=== PATIENT | male | born 1945 | race Caucasian/White ===

== ENCOUNTER → 2017-01-19 | Outpatient (CLI) | payer MEDICARE, BC | LOC: MW.CHFP 09:09 | PROVIDERS: ATTEND Emergency Medicine | DX: I10 Essential (primary) hypertension (principal); Z53.9 Procedure and treatment not carried out, unspecified reason ==

== ENCOUNTER → 2017-01-20 | Outpatient (CLI) | payer MEDICARE, BC ==
[2017-01-20 09:55] LABS: CHLORIDE,CL 106 mmol/L (98-110); SODIUM,NA 139 mmol/L (136-146)
== END | disposition home or self-care (01) ==
LOC: MW.CHFP 09:07
PROVIDERS: ATTEND Emergency Medicine
DX: I10 Essential (primary) hypertension (principal)
CPT/HCPCS: 36415; 80048; 80061

== ENCOUNTER → 2017-01-20 | Outpatient (CLI) | payer MEDICARE, BC | END | disposition home or self-care (01) | LOC: MW.CHUR 09:08 | PROVIDERS: ATTEND Urology | DX: N40.0 Benign prostatic hyperplasia without lower urinary tract symptoms (principal); R97.20 Elevated prostate specific antigen [PSA]; R31.0 Gross hematuria; I10 Essential (primary) hypertension; Z23 Encounter for immunization | CPT/HCPCS: 36415; 80048; 80061; 81001; 84153; 90732; 99214; G0009 ==

== ENCOUNTER → 2017-01-27 | Outpatient (CLI) | payer MEDICARE, BC | LOC: MW.CHUR 14:29 | PROVIDERS: ATTEND Urology | DX: R31.0 Gross hematuria (principal) | CPT/HCPCS: 51798; 76770; 81001 ==

== ENCOUNTER 2018-03-10 09:46 | Day surgery (SDC) | payer MEDICARE, BC ==
[~2018-03-10 09:46] MED LIST: Lactated Ringers 1,000 ML IV SCH; Lidocaine 2% 5 ML SDV ONE; Propofol 200 MG/20 ML SDV ONE; Sodium Chloride 0.9% 10 ML Syringe FLUSH PRN; Sodium Chloride 0.9% 2.5 ML Syringe FLUSH PRN; fentaNYL 100 MCG/2 ML SDV ONE
--- NOTE | 2018-03-10 10:34 | PCM.PREANE ---
Preanesthetic Assessment - Anesthesia/Transfusion/Family Hx Anesthesia History: Prior Anesthesia Without Reaction Family History of Anesthesia Reaction: No Transfusion History: No Prior Transfusion(s) - Review of Systems General: No Symptoms Pulmonary: No Symptoms Cardiovascular: No Symptoms Gastrointestinal: No Symptoms Neurological: No Symptoms Other: Reports: None - Physical Assessment NPO Status Date: 03/09/18 NPO Status Time: 21:00 O2 Sat by Pulse Oximetry: 97 Respiratory Rate: 18 Vital Signs: Last Vital Signs Temp 36.4 C 03/10/18 10:00 Pulse 87 03/10/18 10:00 Resp 18 03/10/18 10:00 BP 140/88 03/10/18 10:00 Pulse Ox 97 03/10/18 10:00 Height: 1.63 m Weight: 74.389 kg ASA Class: 2 - Allergies Allergies/Adverse Reactions: Allergies Allergy/AdvReac Type Severity Reaction Status Date / Time omeprazole [From Prilosec] Allergy kidneys Verified 03/07/18 08:09 shut down sulfamethoxazole Allergy Rash Verified 03/07/18 08:02 [From Bactrim] trimethoprim [From Bactrim] Allergy Rash Verified 03/07/18 08:02 - Anesthesia Plan Pre-Op Medication Ordered: None - Acknowledgements Anesthesia Type Planned: MAC Pt an Appropriate Candidate for the Planned Anesthesia: Yes Alternatives and Risks of Anesthesia Discussed w Pt/Guardian: Yes Pt/Guardian Understands and Agrees with Anesthesia Plan: Yes Additional Comments: PMH: dysphagia, gerd, htn, kidney stones PreAnesthesia Questionnaire HEENT History: Reports: Other (See Below) Other HEENT History: wears glasses Cardiovascular History: Reports: Hypertension Gastrointestinal History: Reports: GERD Genitourinary History: Reports: Prostate Disorder - Past Surgical History Head Surgeries/Procedures: Reports: None HEENT Surgical History: Reports: Tonsillectomy GI Surgical History: Reports: Appendectomy Male Surgical History: Reports: TURP-Transurethral Resection of Prostate Musculoskeletal Surgical History: Reports: Arthroscopic Knee - SUBSTANCE USE Smoking Status *Q: Never Smoker Recreational Drug Use History: No - HOME MEDS Home Medications: Home Meds Famotidine 40 mg PO BID 03/07/18 [History] Mag Carb/Al Hydrox/Alginic Ac [Gaviscon Extra Strength Liquid] 1 dose PO ASDIRECTED PRN 03/07/18 [History] Ramipril 10 mg PO DAILY 03/07/18 [History] - CURRENT (IN HOUSE) MEDS Current Meds: Current Medications Lactated Ringer's (Ringers, Lactated) 1,000 mls @ 125 mls/hr IV ASDIRECTED SHLOMO Last Admin: 03/10/18 10:15 Dose: 125 mls/hr Sodium Chloride (Saline Flush) 10 ml FLUSH ASDIRECTED PRN PRN Reason: Keep Vein Open Sodium Chloride (Saline Flush) 2.5 ml FLUSH ASDIRECTED PRN PRN Reason: Keep Vein Open Sodium Chloride (Saline Flush) 10 ml FLUSH ASDIRECTED PRN PRN Reason: Keep Vein Open Sodium Chloride (Saline Flush) 2.5 ml FLUSH ASDIRECTED PRN PRN Reason: Keep Vein Open Discontinued Medications Fentanyl (Sublimaze) Confirm Administered Dose 100 mcg .ROUTE .STK-MED ONE Stop: 03/10/18 08:15 Lidocaine (Xylocaine-Mpf 2%) Confirm Administered Dose 5 ml .ROUTE .STK-MED ONE Stop: 03/10/18 08:15 Propofol (Diprivan 20 Ml) Confirm Administered Dose 400 mg .ROUTE .STK-MED ONE Stop: 03/10/18 08:15
[2018-03-10] MEDS ORDERED: Glycopyrrolate 0.2 MG/ML SDV ONE (11:32)
[2018-03-10] MEDS ORDERED: Propofol 200 MG/20 ML SDV ONE (11:40)
--- NOTE | 2018-03-10 12:04 | PCM.POSTAN ---
POST ANESTHESIA ASSESSMENT - MENTAL STATUS Mental Status: Alert, Oriented, Somnolent - RESPIRATORY Respiratory Status: Respiratory Rate WNL, Airway Patent, O2 Saturation Stable - CARDIOVASCULAR CV Status: Pulse Rate WNL - GASTROINTESTINAL GI Status: No Symptoms - POST OP HYDRATION Hydration Status: Adequate & Stable
--- NOTE | 2018-03-10 12:04 | PCM48HPAN ---
Post Anesthesia Note - EVALUATION WITHIN 48HRS OF ANESTHETIC Vital Signs in Normal Range: Yes Patient Participated in Evaluation: Yes Respiratory Function Stable: Yes Airway Patent: Yes Cardiovascular Function Stable: Yes Hydration Status Stable: Yes Pain Control Satisfactory: Yes Nausea and Vomiting Control Satisfactory: Yes Mental Status Recovered: Yes Resp Rate: 15
--- NOTE | 2018-03-10 13:26 | PCM.OPNOTE ---
- General Post-Op/Procedure Note Date of Surgery/Procedure: 03/10/18 Operative Procedure(s): Diagnostic EGD and screening colonoscopy Findings: Severe inflammation and irregular appearing tissue above the distal esophagus causing stricture. This was also associated with diverticuli of the esophagus. Hiatal hernia. Gastritis. Diverticulosis. Sigmoid colon polyp. Pre Op Diagnosis: Dysphagia Post-Op Diagnosis: Severe esophagitis. Esophageal disverticuli. Esophageal stricture. Hiatal hernia. Gastritis. Diverticulosis. Sigmoid colon polyp. Anesthesia Technique: [facility] [place] Surgeon: Tierney Dickson Condition: Good Free Text/Narrative:: Intake & Output 03/09/18 03/10/18 03/10/18 22:59 06:59 14:59 Intake Total 1500 Balance 1500
--- NOTE | 2018-03-10 15:11 | OR ---
SURGEON: REGINA MUIR MD DATE OF PROCEDURE: 03/10/2018 PREOPERATIVE DIAGNOSES: 1. Dysphagia. 2. Screening colonoscopy. POSTOPERATIVE DIAGNOSES: 1. Severe esophagitis. 2. Esophageal stricture. 3. Hiatal hernia. 4. Gastritis. 5. Diverticulosis. 6. Sigmoid colon polyp. PROCEDURES PERFORMED: Diagnostic esophagogastroduodenoscopy and screening colonoscopy. ANESTHESIA: MAC. INSTRUMENT USED: Olympus endoscope and colonoscope. EXTENT OF EXAM: To the second portion of duodenum, to the cecum. PREPARATION: Fair for the colonoscopy. LIMITATIONS: None. INDICATION FOR EXAMINATION: The patient is a 72-year-old male, who presented to clinic with complaints of dysphagia. The patient had an adverse reaction to PPIs and has been on famotidine intermittently to treat his reflux. The patient had a preoperative esophagram that showed pseudodiverticula within the distal esophagus as well as narrowing. He also was found to have a hiatal hernia. Direct visualization was recommended. The patient and I discussed the need for diagnostic EGD and a screening colonoscopy since he has never had a colonoscopy. We discussed the procedure, expected perioperative course, and risks including bleeding, infection, or damage to surrounding structures including perforation. The patient verbalized understanding and wishes to proceed. PROCEDURE IN DETAIL: The patient was brought to the endoscopy suite and placed in the left lateral decubitus position. A time-out was completed verifying the patient's name, age, date of , allergies, and procedure to be performed. Monitored anesthesia care was induced and a bite block was placed in the patient's mouth. Continuous oxygen was provided via nasal cannula throughout the procedure. A well lubricated colonoscope was placed in the patient's mouth and advanced to the level of distal esophagus. Upon reaching the distal esophagus, noted severe inflammation and a regular appearance to the esophageal mucosa. I was able to pass the scope through this area with minimal difficulty; however, it was very tight going through this area. Once I was able to pass this strictured area, I immediately encountered the hiatal hernia sac. The scope was then further advanced into the second portion of duodenum. This appeared normal and a photograph was taken. The scope was then fully withdrawn while examining the mucosa of the upper GI tract. The small intestinal mucosa appeared normal. The scope was brought into the stomach. A photograph was taken of the pylorus. There was some mild inflammation along here. A biopsy was taken of the pylorus. A photograph was taken of the GE junction. The patient was noted to have a hiatal hernia sac, but there was no evidence of inflammation there or any mass at the GE junction from the gastric side. Biopsies were taken of the gastric antrum, body, and fundus and sent for H. pylori testing and histologic review. The patient appeared to be slightly oozy. I took extra time to ensure that all the biopsy sites were hemostatic. The scope was then brought into the distal esophagus. I again took a photograph of the hiatal hernia sac. The distal 1/3rd of the esophagus was inflamed and very friable. There were pseudodiverticula along the sides of the esophagus. I took one biopsy just above the GE junction, which bled vigorously. Given how friable and inflamed the tissues were, I decided not to take any further biopsies. Before leaving the site, I ensured that the area where I have taken my biopsy was hemostatic. The proximal half of the esophageal mucosa did appear normal. This portion of procedure was terminated. A digital rectal exam was performed. This exam was within normal limits. A well lubricated colonoscope was inserted into the rectum and advanced under direct visualization to the level of cecum. The cecum was identified by both visual and anatomic landmarks. A photograph was taken of the cecal cap. The scope was then fully withdrawn while examining the color, texture, anatomy, and integrity of the mucosa from the cecum to the anal canal. The patient was found to have one 2 mm sessile polyp within the sigmoid colon. This was removed using a cold biopsy forceps. The scope was then brought into the rectum and retroflexed to allow visualization of the anal canal opening. This appeared normal and a photograph was taken. The scope was then straightened out. Of note, the patient had diverticula throughout the sigmoid colon. The scope was then removed from the patient. The cecum to anus time was 11 minutes. The patient tolerated the procedure well and was taken to PACU in stable condition. ENDOSCOPIC DIAGNOSES: 1. Severe esophagitis. 2. Esophageal stricture. 3. Hiatal hernia. 4. Gastritis. 5. Diverticulosis. 6. Sigmoid colon polyp. RECOMMENDATIONS: I went over my findings with the patient and his . He should continue to take famotidine, however, b.i.d. I will follow up with him on the biopsy results. More than likely, the patient will need to be referred to a used car manager and surgeon for further management since he cannot take PPIs. BE ALBARADO /[id number]
== END 2018-03-10 12:30 | disposition home or self-care (01) ==
LOC: MW.SDS 09:46
PROVIDERS: ATTEND Surgery
DX: Z12.11 Encounter for screening for malignant neoplasm of colon (principal); D12.5 Benign neoplasm of sigmoid colon; K29.50 Unspecified chronic gastritis without bleeding; K22.10 Ulcer of esophagus without bleeding; K57.30 Diverticulosis of large intestine without perforation or abscess without bleeding; K44.9 Diaphragmatic hernia without obstruction or gangrene; K22.2 Esophageal obstruction; N40.0 Benign prostatic hyperplasia without lower urinary tract symptoms; K21.9 Gastro-esophageal reflux disease without esophagitis; I10 Essential (primary) hypertension; N20.0 Calculus of kidney; Z88.1 Allergy status to other antibiotic agents; Z79.899 Other long term (current) drug therapy; Z90.49 Acquired absence of other specified parts of digestive tract; Z90.89 Acquired absence of other organs; Z98.890 Other specified postprocedural states
CPT/HCPCS: 43239; 45380; J3010; J7120; 00813; 88305; 88312; J2704

== ENCOUNTER 2025-02-19 06:49 | Day surgery (SDC) | payer MEDICARE, BC ==
[2025-02-19] MEDS: Lactated Ringers 1,000 ML IV SCH (07:20)
[2025-02-19] MEDS ORDERED: propofoL 500 MG/50 ML 50 ML ONE (07:30)
[2025-02-19] MEDS ORDERED: Lidocaine 2% 5 ML SDV ONE (08:37)
[2025-02-19] MEDS ORDERED: Lactated Ringers 1,000 ML IV SCH (09:15)
== END 2025-02-19 09:36 | disposition home or self-care (01) ==
LOC: MW.SDS 06:49
PROVIDERS: ATTEND Surgery
DX: Z12.11 Encounter for screening for malignant neoplasm of colon (principal); D12.2 Benign neoplasm of ascending colon; D12.5 Benign neoplasm of sigmoid colon; K57.30 Diverticulosis of large intestine without perforation or abscess without bleeding; I10 Essential (primary) hypertension; R73.03 Prediabetes; K21.9 Gastro-esophageal reflux disease without esophagitis; Z88.8 Allergy status to other drugs, medicaments and biological substances; Z88.2 Allergy status to sulfonamides; Z79.899 Other long term (current) drug therapy; Z86.0100 Personal history of colon polyps, unspecified
CPT/HCPCS: 45380; 88305; J2003; J2704; J7120; 00811; 99100